=== PATIENT | male | born 1975 | race African-American/Black ===

== ENCOUNTER → 2021-04-29 | Day surgery (SDC) | payer OTHER ==
[~2021-04-29] MED LIST: ASPI-630 PO; CARV6.2541 PO; CRESTOR40 MG PO; EZET10TA20 PO; FURO-69 PO; GLYCOPYRROLATE 1 MG/5 ML VIAL. ONE; IPRATRPIUM/ALBUTEROL 0.5/2.5MG 3 ML NEBU. NEB PRN; IV RINGERS SOLUTION,LACTATED 1,000 ML IV SCH; KETAMINE HCL IN NACL, ISO-OSM 50 MG/5 ML SYRINGE ONE; LIDOCAINE 2% PF 5 ML VIAL. ONE; METOPROLOL TARTRATE 5 MG/5 ML VIAL. ONE; MIDAZOLAM HCL PF 2 MG/2 ML VIAL. IV ONE; ONDANSETRON PF 4 MG/2 ML VIAL. IV PRN; PROPOFOL 10,000 MCG/ML (20ML) VIAL IV ONE
[2021-04-29 11:50] VITALS: BP 137/54
--- NOTE | 2021-05-02 17:11 | PATHOLOGY ---
[facility] Accession Number: [id number] . 01 Material submitted: . PART A: ANTRUM - ANTRUM GASTRITIS BX PART B: esophagus - DISTAL ESOPHAGUS BX. Modifiers: distal PART C: esophagus - PROXIMAL ESOPHAGUS BX. Modifiers: proximal . 01 Clinical history: . DYSPHAGIA EGD/COLONOSCOPY . 02 Diagnosis: A. Gastric biopsy, antrum: - Chronic gastritis, mild. . B. Esophageal biopsy, distal esophagus: - Hyperplastic squamous esophageal mucosa consistent with reflux esophagitis. . C. Esophageal biopsy, proximal esophagus: - Mildly hyperplastic squamous esophageal mucosa. [facility] 05/02/2021 1429 Local . 02 Comment: Sections of the gastric biopsy reveal gastric antral/body transition mucosa showing congestion and mild chronic inflammation. A properly controlled immunoperoxidase stain for Helicobacter is negative for Helicobacter organisms. . Sections of the distal esophageal biopsy reveal hyperplastic squamous esophageal mucosa consistent with reflux esophagitis. There is no evidence of Langston's change, dysplasia, or malignancy. . Sections of the proximal esophageal biopsy reveal tangentially oriented, mildly hyperplastic squamous esophageal mucosa. There is no evidence of an eosinophilic esophagitis. (JPM/db; 05/02/2021) . 02 Electronically signed: . Ag Belle MD, Pathologist NPI- [id number] . 01 Gross description: . A. The specimen is received in formalin, labeled "Raji Cota, antrum gastritis biopsy". Received is a single segment of pale cano tissue measuring 0.6 cm in maximum dimensions. The specimen is submitted entirely in cassette A1. . B. The specimen is received in formalin, labeled "Cota, Raji, distal esophagus". Received is a single segment of pale cano tissue measuring 0.6 cm in maximum dimensions. The specimen is submitted entirely in cassette B1. . C. The specimen is received in formalin, labeled "Cota, Raji, proximal esophagus". Received is a single segment of pale cano tissue measuring 0.5 cm in maximum dimensions. The specimen is submitted entirely in cassette C1. ([facility]; 04/29/2021) NRI/NRI 04/29/2021 1729 Local . 02 Pathologist provided ICD-10: K29.50, R13.10, Z12.11 . 02 CPT . 742846, 735984, 587919, [id number] Specimen Comment: A courtesy copy of this report has been sent to [phone], [phone] Specimen Comment: [id number] Specimen Comment: Report sent to DR. HAY [facility]formed [facility]: [facility] [address] [facility] [address], [place] [id number] MD Garcia Sol MD Phone: [phone] Performed at: 02 [facility] [address] [place], [place] [id number] MD Ag Belle MD Phone: [phone]
== END | disposition home or self-care (01) ==
LOC: SURG 08:44
PROVIDERS: ATTEND Internal Medicine Gastroenterology
DX: Z12.11 Encounter for screening for malignant neoplasm of colon (principal); K21.9 Gastro-esophageal reflux disease without esophagitis; K44.9 Diaphragmatic hernia without obstruction or gangrene; R13.10 Dysphagia, unspecified; K29.50 Unspecified chronic gastritis without bleeding; K31.89 Other diseases of stomach and duodenum; F17.210 Nicotine dependence, cigarettes, uncomplicated; Z79.82 Long term (current) use of aspirin; Z79.899 Other long term (current) drug therapy; Z98.890 Other specified postprocedural states; Z88.5 Allergy status to narcotic agent
CPT/HCPCS: 43239; 43450; 88305; 88342; G0121; J2001; J2704; J3490; J7120; 43249; 45378